=== PATIENT | female | born 2000 | race Caucasian/White ===

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

== ENCOUNTER 2019-09-27 23:06 | Observation (INO) ==
[2019-09-28 00:10] LABS: Amphetamine Screen,Urine Negative ng/mL (Cutoff=1000); Barbiturate Screen,Urine Negative ng/mL (Cutoff=200); Benzodiazepines Screen,Urine Negative ng/mL (Cutoff=200); Cannabinoid Screen,Urine Negative ng/mL (Cutoff = 50); Cocaine Screen,Urine Negative ng/mL (Cutoff= 300); Opiate Screen,Urine Negative ng/mL (Cutoff=300); Phencyclidine Screen,Urine Negative ng/mL (Cutoff=25)
[2019-09-28 00:21] LABS: Bilirubin,Urine Negative (Negative); Blood,Urine Negative (Negative); Clarity,Urine Cloudy (Clear); Color,Urine Yellow (Yellow); Glucose,Urine (UA) Normal (Normal); Ketones,Urine Negative (Negative); Leukocyte Esterase,Urine Small (Negative); Nitrite,Urine Negative (Negative); Protein,Urine Negative (Neg-Trace); Specific Gravity,Urine 1.025 (1.010-1.025); Urobilinogen,Urine Normal (Normal)
[2019-09-28 00:23] LABS: Bacteria,Urine None Seen per hpf (None-Few); Hyaline Casts,Urine None Seen per lpf (None-Few); Squamous Epithelial Cell,Urine Many per lpf (None-Few); WBC,Urine 30-50 per hpf (0-3)
== END 2019-09-28 01:30 | disposition home or self-care (01) ==
LOC: 1NENULAB
PROVIDERS: ADMIT Advanced Practice Midwife; ATTEND Advanced Practice Midwife

== ENCOUNTER 2019-10-10 07:55 | Inpatient (IN) ==
[2019-10-10] MEDS ORDERED: *HR* Nalbuphine 10 MG/ML AMPUL IVP PRN (08:35)
[2019-10-10] MEDS ORDERED: Naloxone 0.4 MG/ML INJ IVP PRN (08:35)
[2019-10-10] MEDS ORDERED: Famotidine 20 MG/2 ML VIAL IVP PRN (08:35)
[2019-10-10] MEDS ORDERED: Ondansetron 4 MG/2 ML VIAL IVP PRN (08:35)
[2019-10-10] MEDS ORDERED: Metoclopramide 10 MG/2 ML VIAL IVP PRN (08:35)
[2019-10-10] MEDS ORDERED: FLU Vac QV 19-20 (6Month+)/PF 0.5 ML SYRINGE IM ONE (08:41)
[2019-10-10] MEDS ORDERED: Ringers Solution, Lactated 1,000 ML IVC SCH (08:45)
[2019-10-10 08:51] LABS: Basophils % 0.2 %; Eosinophils # 0.1 K/mcL (0.0-0.6); Eosinophils % 0.8 %; Hematocrit 27.9 % (35.3-44.9); Hemoglobin 8.7 g/dL (11.5-15.4); Immature Granulocytes % 0.6 % (0-4); Lymphocytes # 1.7 K/mcL (0.6-4.6); Lymphocytes % 26.4 %; Mean Corpuscular HGB Conc 31.2 g/dL (31.6-35.5); Mean Corpuscular Hemoglobin 23.4 pg (28.0-33.3); Mean Platelet Volume 12.1 fL (9.4-12.4); Monocytes # 0.4 K/mcL (0.0-1.3); Neutrophils # 4.2 K/mcL (1.6-8.9); Platelet Count 196 K/mcL (140-400); Red Blood Count 3.72 M/mcL (3.82-4.97); Red Cell Distribution Width 15.4 % (11.5-14.5); White Blood Count 6.3 K/mcL (4.3-11.1)
[2019-10-10] MEDS ORDERED: Penicillin G Potassium 5,000,000 UNIT in 0.9 % Sodium Chloride Mini Bag 100 ML IVPB ONE (08:56)
[2019-10-10 08:59] LABS: Amphetamine Screen,Urine Negative ng/mL (Cutoff=1000); Barbiturate Screen,Urine Negative ng/mL (Cutoff=200); Benzodiazepines Screen,Urine Negative ng/mL (Cutoff=200); Cannabinoid Screen,Urine Negative ng/mL (Cutoff = 50); Cocaine Screen,Urine Negative ng/mL (Cutoff= 300); Opiate Screen,Urine Negative ng/mL (Cutoff=300); Phencyclidine Screen,Urine Negative ng/mL (Cutoff=25)
[2019-10-10] MEDS ORDERED: EPHEDrine 50 MG/ML VIAL IVP PRN (11:57)
[2019-10-10] MEDS ORDERED: Epidural Premix (fent/bupiv) 110 ML EP SCH (12:00)
[2019-10-10] MEDS: Penicillin G Potassium 2,500,000 UNIT in 0.9 % Sodium Chloride 100 ML IVPB SCH ×2 (13:29→17:33)
[2019-10-10] MEDS ORDERED: Oxytocin 20 units/ LR 1000 mL 20 UNIT/1,000 ML BAG IVC SCH (13:45)
[2019-10-10] MEDS ORDERED: Ropivacaine/PF 0.2% 20 ML VIAL ONE (14:11)
[2019-10-10] MEDS ORDERED: *HR* FentaNYL (PF) 100 MCG/2 ML VIAL ONE (14:11)
[2019-10-10] MEDS ORDERED: Acetaminophen 325 MG TABLET PO ONE (19:18)
[2019-10-11] MEDS ORDERED: Oxytocin 20 units/ LR 1000 mL 20 UNIT/1,000 ML BAG IVC SCH (06:01)
[2019-10-11] MEDS ORDERED: Rho Immune Globulin 1,500 UNIT SYRINGE IM PRN (06:01)
[2019-10-11] MEDS ORDERED: Oxytocin 20 units/ LR 1000 mL 20 UNIT/1,000 ML BAG IVC ONE (06:01)
[2019-10-11] MEDS ORDERED: Measles/Mumps/Rubella Vacc 0.5 ML VIAL SQ PRN (06:01)
[2019-10-11] MEDS ORDERED: Acetaminophen 325 MG TABLET PO PRN (06:01)
[2019-10-11] MEDS: Ibuprofen 600 MG TABLET PO PRN ×3 (06:19→21:42)
[2019-10-11] MEDS: Prenatal Vit/FA 1 EACH TABLET PO SCH (08:30)
[2019-10-12 06:26] LABS: Basophils % 0.1 %; Eosinophils # 0.1 K/mcL (0.0-0.6); Hematocrit 22.9 % (35.3-44.9); Lymphocytes # 2.9 K/mcL (0.6-4.6); Lymphocytes % 31.5 %; Mean Corpuscular Hemoglobin 23.3 pg (28.0-33.3); Mean Corpuscular Volume 75.1 fL (83.0-100.0); Mean Platelet Volume 11.6 fL (9.4-12.4); Monocytes # 0.5 K/mcL (0.0-1.3); Monocytes % 5.2 %; Neutrophils # 5.6 K/mcL (1.6-8.9); Nucleated Red Blood Cells 0.2 /100 WBC (0); Platelet Count 164 K/mcL (140-400); Red Blood Count 3.05 M/mcL (3.82-4.97); Red Cell Distribution Width 15.4 % (11.5-14.5); Segmented Neutrophils % 61.2 %; White Blood Count 9.2 K/mcL (4.3-11.1)
[2019-10-12 06:31] LABS: Hemoglobin 7.1 g/dL (11.5-15.4)
[2019-10-12] MEDS: Ibuprofen 600 MG TABLET PO PRN (07:35)
[2019-10-12] MEDS: Prenatal Vit/FA 1 EACH TABLET PO SCH (07:35)
[2019-10-12 09:43] VITALS: BP 117/78
[2019-10-12] MEDS ORDERED: FLU Vac QV 19-20 (6Month+)/PF 0.5 ML SYRINGE IM ONE (10:00)
== END 2019-10-12 11:50 | disposition home or self-care (01) | DRG 560 ==
LOC: 1NENULAB 07:55 → 1NENUOBS 10-11 06:01
PROVIDERS: ADMIT Obstetrics & Gynecology; ATTEND Obstetrics & Gynecology

== ENCOUNTER 2021-07-28 21:58 | Observation (INO) ==
[2021-07-28] MEDS ORDERED: *HR* OxyCODONE/APAP 5/325 TABLET PO ONE (22:43)
[2021-07-28] MEDS ORDERED: Ringers Solution, Lactated 1,000 ML IVC ONE (22:43)
[2021-07-28] MEDS ORDERED: Ringers Solution, Lactated 1,000 ML IVC SCH (22:45)
[2021-07-28] MEDS ORDERED: Ringers Solution, Lactated 1,000 ML ONE (22:47)
[2021-07-28 23:12] LABS: Basophils % 0.1 %; Eosinophils % 0.2 %; Hematocrit 29.3 % (35.3-44.9); Hemoglobin 9.3 g/dL (11.5-15.4); Immature Granulocytes % 0.4 % (0-4); Lymphocytes # 2.1 K/mcL (0.6-4.6); Lymphocytes % 26.1 %; Mean Corpuscular HGB Conc 31.7 g/dL (31.6-35.5); Mean Corpuscular Hemoglobin 26.8 pg (28.0-33.3); Mean Corpuscular Volume 84.4 fL (83.0-100.0); Mean Platelet Volume 11.5 fL (9.4-12.4); Monocytes # 0.5 K/mcL (0.0-1.3); Monocytes % 5.6 %; Neutrophils # 5.5 K/mcL (1.6-8.9); Platelet Count 194 K/mcL (140-400); Red Blood Count 3.47 M/mcL (3.82-4.97); Red Cell Distribution Width 14.2 % (11.5-14.5); Segmented Neutrophils % 67.6 %; White Blood Count 8.1 K/mcL (4.3-11.1)
[2021-07-28 23:33] LABS: Bacteria,Urine Few per hpf (None-Few); Bilirubin,Urine Negative (Negative); Blood,Urine Moderate (Negative); Clarity,Urine Turbid (Clear); Color,Urine Yellow (Yellow); Glucose,Urine (UA) Normal (Normal); Ketones,Urine Negative (Negative); Leukocyte Esterase,Urine Moderate (Negative); Mucus,Urine Moderate per lpf (None-Few); Nitrite,Urine Negative (Negative); Protein,Urine 50 mg/dL (Neg-Trace); RBC,Urine TNTC per hpf (0-3); Specific Gravity,Urine 1.028 (1.010-1.025); Squamous Epithelial Cell,Urine Moderate per hpf (None-Few); Transitional Epi Cells,Urine Few per hpf (None-Few); Urobilinogen,Urine Normal (Normal); WBC,Urine 15-30 per hpf (0-3)
== END 2021-07-29 03:40 | disposition home or self-care (01) ==
LOC: 1NENULAB
PROVIDERS: ADMIT Obstetrics & Gynecology; ATTEND Obstetrics & Gynecology

== ENCOUNTER → 2021-09-03 14:02 | Observation (INO) | END | disposition home or self-care (01) | LOC: 1NENULAB | PROVIDERS: ADMIT Registered Nurse; ATTEND Registered Nurse ==

== ENCOUNTER → 2021-09-07 21:25 | Observation (INO) ==
[2021-09-07 20:40] LABS: Bacteria,Urine Few per hpf (None-Few); Bilirubin,Urine Negative (Negative); Blood,Urine Negative (Negative); Clarity,Urine Turbid (Clear); Color,Urine Yellow (Yellow); Glucose,Urine (UA) Normal (Normal); Ketones,Urine 60 mg/dL (Negative); Leukocyte Esterase,Urine Small (Negative); Mucus,Urine Few per lpf (None-Few); Nitrite,Urine Negative (Negative); PH,Urine 6.5 pH Units (5.0-8.0); Protein,Urine Trace mg/dL (Neg-Trace); Specific Gravity,Urine 1.023 (1.010-1.025); Squamous Epithelial Cell,Urine Few per hpf (None-Few); Urobilinogen,Urine Normal (Normal)
[~2021-09-07 21:25] MED LIST: FLU Vac QV 21-22 (6Month+)/PF 0.5 ML SYRINGE IM ONE
[2021-09-07 21:51] LABS: Candida DNA Not Detected (Not Detect); Gardnerella DNA Not Detected (Not Detect); Trichomonas DNA Not Detected (Not Detect)
== END | disposition home or self-care (01) ==
LOC: 1NENULAB
PROVIDERS: ADMIT Obstetrics & Gynecology; ATTEND Obstetrics & Gynecology

== ENCOUNTER 2021-09-16 05:48 | Inpatient (IN) ==
[2021-09-16] MEDS ORDERED: *HR* Nalbuphine 10 MG/ML AMPUL IV PRN (06:03)
[2021-09-16] MEDS ORDERED: Naloxone 0.4 MG/ML INJ IVP PRN (06:03)
[2021-09-16] MEDS ORDERED: Metoclopramide 10 MG/2 ML VIAL IVP PRN (06:03)
[2021-09-16] MEDS ORDERED: Lidocaine 1% 20 ML MDV INFILT PRN (06:03)
[2021-09-16] MEDS ORDERED: Ondansetron 4 MG/2 ML VIAL IVP PRN (06:03)
[2021-09-16] MEDS ORDERED: Famotidine 20 MG/2 ML VIAL IVP PRN (06:03)
[2021-09-16] MEDS ORDERED: Ringers Solution, Lactated 1,000 ML IVC SCH (06:15)
[2021-09-16] MEDS ORDERED: miSOPROStoL 25 MCG TABLET PO PRN (07:52)
[2021-09-16 08:13] LABS: Basophils % 0.1 %; Eosinophils # 0.1 K/mcL (0.0-0.6); Hematocrit 31.6 % (35.3-44.9); Hemoglobin 9.8 g/dL (11.5-15.4); Immature Granulocytes % 0.4 % (0-4); Lymphocytes # 1.6 K/mcL (0.6-4.6); Mean Corpuscular Hemoglobin 26.1 pg (28.0-33.3); Mean Corpuscular Volume 84.3 fL (83.0-100.0); Mean Platelet Volume 11.9 fL (9.4-12.4); Monocytes # 0.4 K/mcL (0.0-1.3); Monocytes % 5.4 %; Neutrophils # 4.6 K/mcL (1.6-8.9); Platelet Count 180 K/mcL (140-400); Red Blood Count 3.75 M/mcL (3.82-4.97); Red Cell Distribution Width 18.2 % (11.5-14.5); Segmented Neutrophils % 69.1 %; White Blood Count 6.7 K/mcL (4.3-11.1)
[2021-09-16 08:48] LABS: Influenza A PCR Negative (Negative); Influenza B PCR Negative (Negative); Resp. Syncytial Virus PCR Negative (Negative)
[2021-09-16 08:49] LABS: SARS-CoV-2 by PCR (In House) Negative (Negative)
[2021-09-16 09:33] LABS: Amphetamine Screen,Urine Negative ng/mL (Cutoff=1000); Barbiturate Screen,Urine Negative ng/mL (Cutoff=200); Benzodiazepines Screen,Urine Negative ng/mL (Cutoff=200); Cannabinoid Screen,Urine Negative ng/mL (Cutoff = 50); Cocaine Screen,Urine Negative ng/mL (Cutoff= 300); Opiate Screen,Urine Negative ng/mL (Cutoff=300); Phencyclidine Screen,Urine Negative ng/mL (Cutoff=25)
[2021-09-16] MEDS ORDERED: Oxytocin 20 units/ LR 1000 mL 20 UNIT/1,000 ML BAG IVC SCH (12:15)
[2021-09-16] MEDS ORDERED: Oxytocin 20 units/ LR 1000 mL 20 UNIT/1,000 ML BAG IVC ONE (12:19)
[2021-09-16] MEDS ORDERED: Ropivacaine/PF 0.2% 20 ML VIAL EP ONE (14:53)
[2021-09-16] MEDS ORDERED: *HR* FentaNYL (PF) 100 MCG/2 ML VIAL EP ONE (14:53)
[2021-09-16] MEDS ORDERED: EPHEDrine 50 MG/ML VIAL IVP PRN (14:53)
[2021-09-16] MEDS ORDERED: Epidural Premix (fent/bupiv) 110 ML EP SCH (15:00)
[2021-09-16] MEDS ORDERED: Acetaminophen 325 MG TABLET PO PRN (18:01)
[2021-09-17] MEDS ORDERED: Rho Immune Globulin 1,500 UNIT SYRINGE IM PRN (04:31)
[2021-09-17] MEDS ORDERED: Oxytocin 20 units/ LR 1000 mL 20 UNIT/1,000 ML BAG IVC ONE (04:31)
[2021-09-17] MEDS ORDERED: Measles/Mumps/Rubella Vacc 0.5 ML VIAL SQ PRN (04:31)
[2021-09-17] MEDS ORDERED: Oxytocin 20 units/ LR 1000 mL 20 UNIT/1,000 ML BAG IVC SCH (04:31)
[2021-09-17] MEDS ORDERED: Ondansetron ODT 4 MG TAB.RAPDIS SL PRN (04:31)
[2021-09-17] MEDS ORDERED: Benzocaine/Menthol 56 GM AEROSOL SPRAY TP PRN (04:31)
[2021-09-17] MEDS ORDERED: Lanolin 7 G OINT...G. TP PRN (04:31)
[2021-09-17] MEDS: Ibuprofen 600 MG TABLET PO SCH ×3 (06:08→17:57)
[2021-09-17] MEDS: Acetaminophen 325 MG TABLET PO SCH ×3 (06:09→17:57)
[2021-09-17] MEDS: Prenatal Vit/FA 1 EACH TABLET PO SCH (10:38)
[2021-09-17 21:08] VITALS: O2SAT 99
[2021-09-18 03:43] LABS: Basophils % 0.1 %; Eosinophils # 0.1 K/mcL (0.0-0.6); Eosinophils % 1.4 %; Hematocrit 32.6 % (35.3-44.9); Hemoglobin 10.2 g/dL (11.5-15.4); Immature Granulocytes % 0.1 % (0-4); Lymphocytes # 2.6 K/mcL (0.6-4.6); Mean Corpuscular HGB Conc 31.3 g/dL (31.6-35.5); Mean Corpuscular Hemoglobin 26.2 pg (28.0-33.3); Mean Corpuscular Volume 83.6 fL (83.0-100.0); Mean Platelet Volume 11.3 fL (9.4-12.4); Monocytes # 0.5 K/mcL (0.0-1.3); Monocytes % 6.7 %; Neutrophils # 3.7 K/mcL (1.6-8.9); Platelet Count 182 K/mcL (140-400); Red Cell Distribution Width 18.1 % (11.5-14.5); Segmented Neutrophils % 53.7 %; White Blood Count 6.9 K/mcL (4.3-11.1)
[2021-09-18] MEDS: Ibuprofen 600 MG TABLET PO SCH (04:12)
[2021-09-18] MEDS: Acetaminophen 325 MG TABLET PO SCH (04:13)
[2021-09-18 08:22] VITALS: BP 138/82; PULSE 79; TEMP 97.6
[2021-09-18] MEDS: Prenatal Vit/FA 1 EACH TABLET PO SCH (08:29)
== END 2021-09-18 11:26 | disposition home or self-care (01) | DRG 560 ==
LOC: 1NENULAB 05:48 → 1NENUOBS 09-17 04:21
PROVIDERS: ADMIT Obstetrics & Gynecology; ATTEND Obstetrics & Gynecology

== ENCOUNTER → 2022-08-27 16:37 | Observation (INO) ==
[2022-08-27 16:13] LABS: Bilirubin,Urine Negative (Negative); Blood,Urine Negative (Negative); Clarity,Urine Clear (Clear); Color,Urine Light-Yellow (Yellow); Glucose,Urine (UA) Normal (Normal); Ketones,Urine Trace mg/dL (Negative); Leukocyte Esterase,Urine Negative (Negative); Nitrite,Urine Negative (Negative); PH,Urine 6.5 pH Units (5.0-8.0); Protein,Urine Trace mg/dL (Neg-Trace); Specific Gravity,Urine 1.017 (1.010-1.025); Urobilinogen,Urine Normal (Normal)
== END | disposition home or self-care (01) ==
LOC: 1NENULAB
PROVIDERS: ADMIT Obstetrics & Gynecology; ATTEND Obstetrics & Gynecology

== ENCOUNTER → 2022-08-30 13:25 | Observation (INO) ==
[2022-08-30 10:38] LABS: Basophils % 0.1 %; Eosinophils % 0.5 %; Hematocrit 32.3 % (35.3-44.9); Hemoglobin 10.1 g/dL (11.5-15.4); Immature Granulocytes % 0.3 % (0-4); Lymphocytes % 27.1 %; Mean Corpuscular HGB Conc 31.3 g/dL (31.6-35.5); Mean Corpuscular Hemoglobin 25.9 pg (28.0-33.3); Mean Corpuscular Volume 82.8 fL (83.0-100.0); Mean Platelet Volume 11.5 fL (9.4-12.4); Monocytes # 0.4 K/mcL (0.0-1.3); Monocytes % 5.3 %; Platelet Count 188 K/mcL (140-400); Red Cell Distribution Width 13.6 % (11.5-14.5); Segmented Neutrophils % 66.7 %; White Blood Count 7.5 K/mcL (4.3-11.1)
[2022-08-30 10:41] LABS: Bacteria,Urine Few per hpf (None-Few); Bilirubin,Urine Negative (Negative); Blood,Urine Negative (Negative); Clarity,Urine Turbid (Clear); Color,Urine Light-Yellow (Yellow); Glucose,Urine (UA) Normal (Normal); Ketones,Urine Negative (Negative); Leukocyte Esterase,Urine Moderate (Negative); Mucus,Urine Few per lpf (None-Few); Nitrite,Urine Negative (Negative); PH,Urine 7.5 pH Units (5.0-8.0); Protein,Urine Trace mg/dL (Neg-Trace); RBC,Urine 0-3 per hpf (0-3); Specific Gravity,Urine 1.016 (1.010-1.025); Squamous Epithelial Cell,Urine Few per hpf (None-Few); Urobilinogen,Urine Normal (Normal)
[2022-08-30 10:53] LABS: Alanine Aminotransferase 9 Units/L (7-52); Albumin 3.5 g/dL (3.5-5.7); Albumin/Globulin Ratio 1.2 (1.1-2.2); Alkaline Phosphatase 88 Units/L (34-104); Amylase 35 Units/L (29-103); Aspartate Amino Transferase 11 Units/L (13-39); BUN/Creatinine Ratio 11 (6-26); Bilirubin,Total 0.3 mg/dL (0.3-1.0); Blood Urea Nitrogen 4 mg/dL (6-20); Calcium 8.5 mg/dL (8.6-10.3); Carbon Dioxide 22 mEq/L (23-29); Chloride 107 mEq/L (98-107); Globulin 2.9 g/dL (2.4-3.5); Glucose 75 mg/dL (70-105); Lipase 10 Units/L (11-82); Osmolality,Calculated 280 (280-300); Potassium 3.5 mEq/L (3.5-5.1); Sodium 137 mEq/L (136-145); Total Protein 6.4 g/dL (6.4-8.9)
[~2022-08-30 13:25] MED LIST changes: -FLU Vac QV 21-22 (6Month+)/PF 0.5 ML SYRINGE IM ONE; +Ondansetron 4 MG/2 ML VIAL IVP ONE; +Ringers Solution, Lactated 1,000 ML IVC SCH
== END | disposition home or self-care (01) ==
LOC: 1NENULAB
PROVIDERS: ADMIT Obstetrics & Gynecology; ATTEND Obstetrics & Gynecology

== ENCOUNTER 2022-09-06 14:31 | Inpatient (IN) ==
[2022-09-06] MEDS ORDERED: EPHEDrine sulfate 50 MG/10 ML VIAL IVP PRN (15:00)
[2022-09-06] MEDS ORDERED: Epidural Premix (fent/bupiv) 110 ML EP SCH (15:00)
[2022-09-06] MEDS ORDERED: Ondansetron 4 MG/2 ML VIAL IVP PRN (15:16)
[2022-09-06] MEDS ORDERED: Famotidine 20 MG/2 ML VIAL IVP PRN (15:16)
[2022-09-06] MEDS ORDERED: *HR* Nalbuphine 10 MG/ML AMPUL IV PRN (15:16)
[2022-09-06] MEDS ORDERED: Metoclopramide 10 MG/2 ML VIAL IVP PRN (15:16)
[2022-09-06] MEDS ORDERED: Azithromycin 500 MG in 0.9 % Sodium Chloride 250 ML IVPB PRN (15:16)
[2022-09-06] MEDS ORDERED: Naloxone 0.4 MG/ML INJ IVP PRN (15:16)
[2022-09-06] MEDS ORDERED: Oxytocin 30 UNIT/503 ML BAG IVC SCH (15:30)
[2022-09-06 15:36] LABS: Basophils % 0.1 %; Eosinophils # 0.1 K/mcL (0.0-0.6); Eosinophils % 0.8 %; Hematocrit 32.4 % (35.3-44.9); Hemoglobin 10.3 g/dL (11.5-15.4); Immature Granulocytes % 0.3 % (0-4); Lymphocytes # 2.1 K/mcL (0.6-4.6); Lymphocytes % 28.6 %; Mean Corpuscular HGB Conc 31.8 g/dL (31.6-35.5); Mean Corpuscular Hemoglobin 26.1 pg (28.0-33.3); Mean Platelet Volume 11.7 fL (9.4-12.4); Monocytes # 0.4 K/mcL (0.0-1.3); Monocytes % 5.1 %; Neutrophils # 4.9 K/mcL (1.6-8.9); Platelet Count 186 K/mcL (140-400); Red Blood Count 3.95 M/mcL (3.82-4.97); Red Cell Distribution Width 13.5 % (11.5-14.5); Segmented Neutrophils % 65.1 %; White Blood Count 7.5 K/mcL (4.3-11.1)
[2022-09-06 15:46] LABS: Amphetamine Screen,Urine Negative ng/mL (Cutoff=1000); Barbiturate Screen,Urine Negative ng/mL (Cutoff=200); Benzodiazepines Screen,Urine Negative ng/mL (Cutoff=200); Cannabinoid Screen,Urine Negative ng/mL (Cutoff = 50); Cocaine Screen,Urine Negative ng/mL (Cutoff= 300); Opiate Screen,Urine Negative ng/mL (Cutoff=300); Phencyclidine Screen,Urine Negative ng/mL (Cutoff=25)
[2022-09-06] MEDS: Ringers Solution, Lactated 1,000 ML IVC SCH ×2 (16:27→21:37)
[2022-09-06] MEDS ORDERED: Flu Vac QV 22-23 (6MOS UP)/PF 0.5 ML SYRINGE IM ONE (17:05)
[2022-09-07] MEDS: Ringers Solution, Lactated 1,000 ML IVC SCH ×2 (00:19→07:16)
[2022-09-07] MEDS ORDERED: 0.9 % Sodium Chloride 1,000 ML ONE (10:31)
[2022-09-07] MEDS: Oxytocin 30 UNIT/503 ML BAG IVC SCH ×2 (11:58→16:03)
[2022-09-07] MEDS ORDERED: 0.9 % Sodium Chloride 1,000 ML IR ONE (12:00)
[2022-09-07] MEDS ORDERED: Lanolin 7 G OINT...G. TP PRN (13:35)
[2022-09-07] MEDS ORDERED: Rho Immune Globulin 1,500 UNIT SYRINGE IM PRN (13:35)
[2022-09-07] MEDS ORDERED: Ondansetron ODT 4 MG TAB.RAPDIS SL PRN (13:35)
[2022-09-07] MEDS ORDERED: Benzocaine/Menthol 56 GM AEROSOL SPRAY TP PRN (13:35)
[2022-09-07] MEDS ORDERED: *HR* Oxytocin 10 UNIT/ML VIAL IM ONE (13:35)
[2022-09-07] MEDS ORDERED: Measles/Mumps/Rubella Vacc 0.5 ML VIAL SQ PRN (13:35)
[2022-09-07] MEDS: Ibuprofen 600 MG TABLET PO SCH ×2 (16:40→23:57)
[2022-09-07] MEDS: Acetaminophen 325 MG TABLET PO SCH (20:11)
[2022-09-07 23:04] VITALS: O2SAT 99
[2022-09-08] MEDS: Acetaminophen 325 MG TABLET PO SCH (04:20)
[2022-09-08 04:43] LABS: Basophils % 0.2 %; Eosinophils # 0.1 K/mcL (0.0-0.6); Eosinophils % 0.8 %; Hematocrit 29.9 % (35.3-44.9); Hemoglobin 9.6 g/dL (11.5-15.4); Immature Granulocytes % 0.3 % (0-4); Lymphocytes # 2.8 K/mcL (0.6-4.6); Lymphocytes % 31.5 %; Mean Corpuscular HGB Conc 32.1 g/dL (31.6-35.5); Mean Corpuscular Hemoglobin 26.3 pg (28.0-33.3); Mean Corpuscular Volume 81.9 fL (83.0-100.0); Mean Platelet Volume 11.8 fL (9.4-12.4); Monocytes # 0.5 K/mcL (0.0-1.3); Monocytes % 5.9 %; Neutrophils # 5.4 K/mcL (1.6-8.9); Platelet Count 183 K/mcL (140-400); Red Blood Count 3.65 M/mcL (3.82-4.97); Red Cell Distribution Width 13.6 % (11.5-14.5); Segmented Neutrophils % 61.3 %; White Blood Count 8.8 K/mcL (4.3-11.1)
[2022-09-08 04:51] VITALS: PULSE 77
[2022-09-08 07:57] VITALS: BP 120/74; TEMP 97.7
[2022-09-08] MEDS: Ibuprofen 600 MG TABLET PO SCH (08:02)
[2022-09-08] MEDS ORDERED: Prenatal Vit/FA 1 EACH TABLET PO SCH (09:00)
== END 2022-09-08 13:35 | disposition home or self-care (01) | DRG 560 ==
LOC: 1NENULAB 14:31 → 1NENUOBS 09-07 14:39
PROVIDERS: ADMIT Obstetrics & Gynecology; ATTEND Obstetrics & Gynecology